=== PATIENT | male | born 1955 | race Caucasian/White ===

== ENCOUNTER 2017-06-14 12:02 | Day surgery (SDC) | payer BC ==
[~2017-06-14] VITALS: Ht 177.8 cm; Wt 88.6 kg
[~2017-06-14 12:02] MED LIST: ACETAMINOPHEN500 M1 PO; BAYER CHEWABLE81 MG PO; CARAFATE1 G PO; CLARITIN 10 MG10 MG PO; NORVASC10 MG PO; PREVACID30 MG PO; REQUIP XL2 MG PO; VIAGRA25 MG PO; ZANTAC150 MG PO; ZESTRIL20 MG PO; [UNRECOGNIZED DRUG - OTHER] PO
[2017-06-14 12:39] LABS: BASOPHILS 0.4 % (0-2); EOSINOPHILS 4.5 % (0-7); HEMATOCRIT 44.9 % (42.0-54.0); IMMATURE GRANULOCYTES 0.2 % (0-5); MCH 29.7 pg (26.0-34.0); MCHC 33.4 g/dL (31.0-37.0); MCV 88.9 fL (80.0-100.0); MEAN PLATELET VOLUME 9.7 fL (7.4-10.4); MONOCYTES 8.8 % (2-11); NEUTROPHILS 66.1 % (40-80); PLATELET COUNT 234 10x3/uL (130-400); RBC 5.05 10x6/uL (4.20-6.10); RDW 12.7 % (11.5-14.5); WBC 5.4 10x3/uL (4.8-10.8)
[2017-06-14 12:56] LABS: ALBUMIN 3.6 g/dL (3.4-5.0); ALKALINE PHOSPHATASE 58 U/L (46-116); ALT (SGPT) 28 U/L (10-68); BILIRUBIN - TOTAL 0.27 mg/dL (0.2-1.3); CALC OSMOLALITY 284 mosm/kg (275-300); CALCIUM 8.8 mg/dL (8.5-10.1); CARBON DIOXIDE 27.4 mmol/L (21.0-32.0); CHLORIDE - SERUM 107 mmol/L (98-107); GLUCOSE 114 mg/dL (74-106); POTASSIUM - SERUM 4.3 mmol/L (3.5-5.1); PROTEIN - SERUM 6.6 g/dL (6.4-8.2); SODIUM 142 mmol/L (136-145); UREA NITROGEN 16 mg/dL (7-18); eGFR NON AFRICAN AMERICAN 80 mL/min (90-120)
[2017-06-14] MEDS ORDERED: HYDROCODONE-APA1 TAB PO (13:25)
[2017-06-14] MEDS ORDERED: SUCRALFATE 1 GM (13:26)
[2017-06-14] MEDS ORDERED: LYRICA75 MG PO (13:26)
[2017-06-14 13:30] VITALS: BP 119/68; Ht 177.8 cm; Wt 88.6 kg
--- NOTE | 2017-06-14 15:42 | NUR ---
1530 IV DC WITH CATHER TIP INTACT
--- NOTE | 2017-06-27 18:56 | OP ---
PATIENT NAME: RAI MURILLO MEDICAL RECORD: [id number] :55 [facility] DATE: SURGEON: CLARITA HADLEY MD DATE OF OPERATION: 06/14/2017 PROCEDURE: EGD with biopsy. REFERRING PHYSICIAN: Wai Mackey MD INDICATIONS: Mr. Murillo is a very pleasant 62-year-old gentleman who has had symptoms of GE reflux, epigastric pain and diarrhea. His last EGD was 01/22/2014 that shows small hiatal hernia, mild gastritis. Antral biopsies were negative for H. pylori and distal esophageal biopsy showed mild chronic esophagitis with reflux type changes. His last colonoscopy was 02/25/2014 that showed 5 colon polyps, moderate sigmoid diverticulosis coli, and mild internal hemorrhoids (polyps were hyperplastic and tubular adenomatous). He takes Prevacid and ranitidine. He presents for outpatient EGD. PREMEDICATIONS: Total IV anesthesia (propofol 250 mg), (history of obstructive sleep apnea and restless leg syndrome) propofol 250 mg. INSTRUMENT: Olympus video gastroscope. PROCEDURE AND FINDINGS: After receiving informed consent, Mr. Murillo's posterior pharynx was anesthetized with Cetacaine spray. He was placed in left lateral decubitus position and sedated as per anesthesia. After achieving adequate level of sedation, gastroscope was introduced per orally and advanced to the duodenum without difficulty. The esophageal mucosa was without ulcers or masses. There was a slight irregularity at the Z-line and distal esophageal biopsies were obtained. A small sliding type hiatal hernia is present. Gastric mucosa was notable for mild prepyloric and antral erythema and antral biopsies were obtained to rule out Helicobacter pylori. A 0.3 cm sessile polyp was noted in the distal fundus of the stomach and was biopsied and multiple biopsies were obtained. Pylorus was patent and competent. Duodenal mucosa was without erythema or ulcers, appeared normal through the second portion. Biopsies were obtained from the second portion of duodenum to rule out celiac disease. Gastroscope was then withdrawn. Mr. Murillo tolerated the procedure well, no immediate complications. ASSESSMENT: 1. Irregular Z-line suggestive of gastroesophageal reflux, status post distal esophageal biopsy. 2. Small sliding type hiatal hernia. 3. Mild gastritis. 4. Small gastric polyp. 5. Epigastric pain. 6. Diarrhea. RECOMMENDATIONS: 1. Follow up histopathology. 2. Continue Prevacid and Zantac. 3. Colonoscopy as scheduled. 4. Right upper quadrant abdominal ultrasound to rule out biliary disease is the source of his epigastric pain. OPERATIVE REPORT [id number] RAI MURILLO TRANSINT:[id number] Voice Confirmation ID: [id number] DOCUMENT ID: [id number] CLARITA HADLEY MD at 1856 CC: [id number] DICTATION DATE: 06/14/17 145 PRESIDENT AND CHIEF COMMERCIAL OFFICER: 06/14/17 1606 [facility] [place] 06/14/17 [id number] [place] [address]
== END 2017-06-14 15:40 | disposition home or self-care (01) ==
LOC: D.OPS 12:02
PROVIDERS: Internal Medicine Gastroenterology
DX: K21.9 Gastro-esophageal reflux disease without esophagitis (principal); K44.9 Diaphragmatic hernia without obstruction or gangrene; K29.70 Gastritis, unspecified, without bleeding; K31.7 Polyp of stomach and duodenum; R19.7 Diarrhea, unspecified; Z01.812 Encounter for preprocedural laboratory examination

== ENCOUNTER → 2019-10-24 12:35 | Outpatient (CLI) | payer BC ==
[2017-06-14 13:30] VITALS: BMI 28.0
[~2019-10-24 12:35] MED LIST changes: +HYDROCODONE-APA1 TAB PO; +LYRICA75 MG PO; +SUCRALFATE 1 GM
== END | disposition home or self-care (01) ==
LOC: D.MRI 12:35
PROVIDERS: ATTEND Family Medicine
DX: M51.36 Other intervertebral disc degeneration, lumbar region (principal)